=== PATIENT | male | born 1985 ===

== ENCOUNTER → 2018-12-07 19:12 | Outpatient (REF) | payer SELFPAY ==
[2018-12-09 16:13] LABS: Rubeola Measles IgG < 25.00 AU/mL (< 25.00)
== END ==
LOC: LAB 19:12
PROVIDERS: Visit Provider Nurse Practitioner Acute Care
DX: Z01.84 Encounter for antibody response examination (principal)
CPT/HCPCS: 86735; 86762; 86765